=== PATIENT | female | born 1930 | race Hispanic/Latino ===

== ENCOUNTER 2017-10-22 15:24 | Emergency (ER) | payer MEDICARE ==
[2017-10-22 18:04] LABS: BASOPHILS % (AUTO) 0.5 % (0.0-5.0); EOSINOPHILS % (AUTO) 0.8 % (0.0-8.0); HEMATOCRIT 39.6 % (36-48); MEAN CORPUSCULAR HEMOGLOBIN 31.3 pg (27.0-33.0); MEAN CORPUSCULAR VOLUME 89.6 fL (79-99); MONOCYTES % (AUTO) 8.8 % (3.0-13.0); NEUTROPHILS % (AUTO) 68.9 % (40.0-77.0); NUCLEATED RED BLOOD CELLS 0.1 % (0.0-0.19); PLATELET COUNT (AUTO) 268 K/uL (130-400); RED BLOOD CELL COUNT(AUTO) 4.41 MIL/uL (4.00-5.50); RED CELL DISTRIBUTION WIDTH 14.4 % (11.0-15.5); WHITE BLOOD COUNT (AUTO) 9.5 K/uL (4.8-10.8)
[2017-10-22 18:23] LABS: INR 0.95 (0.85-1.15); PARTIAL THROMBOPLASTIN TIME 27.4 SEC (26.3-35.5)
[2017-10-22 18:24] LABS: CARBON DIOXIDE 29 mmol/L (21-32); CHLORIDE 102 mmol/L (101-111); GLOMERULAR FILTR. RATE CALC 56 mL/min (>60); GLUCOSE,RANDOM 100 mg/dL (70-105); POTASSIUM 3.8 mmol/L (3.5-5.1); SODIUM SERUM 141 mmol/L (136-145); UREA NITROGEN, BLOOD 23 mg/dL (7-18)
[2017-10-22 18:38] LABS: ALANINE AMINOTRANSFERASE 21 U/L (12-78); ALBUMIN 3.5 g/dL (3.5-5.0); ASPARTATE AMINOTRANSFERASE 17 U/L (10-37); BILIRUBIN,TOTAL 0.3 mg/dL (0.2-1.0); CREATINE KINASE MB < 0.5 ng/mL (0.5-3.6); CREATINE KINASE, TOTAL 37 U/L (21-232)
== END 2017-10-22 19:48 | disposition home or self-care (01) ==
LOC: EDH 15:24
DX: I10 Essential (primary) hypertension (principal); R42 Dizziness and giddiness; Z90.49 Acquired absence of other specified parts of digestive tract; Z98.890 Other specified postprocedural states
CPT/HCPCS: 36415; 70450; 71045; 80053; 82550; 82553; 83880; 84484; 85025; 85610; 85730; 93005

== ENCOUNTER → 2018-09-13 | Outpatient (CLI) | payer OTHER, MEDICARE | END | disposition home or self-care (01) | LOC: OIH 09:59 | PROVIDERS: ATTEND Internal Medicine Cardiovascular Disease | DX: R07.9 Chest pain, unspecified (principal); M47.815 Spondylosis without myelopathy or radiculopathy, thoracolumbar region; Q25.46 Tortuous aortic arch | CPT/HCPCS: 71046 ==

== ENCOUNTER 2018-11-29 18:42 | Observation (INO) | payer OTHER, MEDICARE ==
[~2018-11-29] VITALS: Ht 152.4 cm; Wt 73.2 kg
[2018-11-29 19:18] LABS: BASOPHILS % (AUTO) 0.5 % (0.0-5.0); EOSINOPHILS % (AUTO) 0.3 % (0.0-8.0); LYMPHOCYTES % (AUTO) 9.3 % (21.0-51.0); MEAN CORPUSCULAR HEMOGLOBIN 30.5 pg (27.0-33.0); MEAN CORPUSCULAR HGB CONC 34.1 g/dL (32.0-36.0); MEAN CORPUSCULAR VOLUME 89.4 fL (79-99); MONOCYTES % (AUTO) 7.1 % (3.0-13.0); NEUTROPHILS % (AUTO) 82.8 % (40.0-77.0); PLATELET COUNT (AUTO) 234 K/uL (130-400); RED BLOOD CELL COUNT(AUTO) 4.37 MIL/uL (4.00-5.50); WHITE BLOOD COUNT (AUTO) 9.6 K/uL (4.8-10.8)
[2018-11-29] MEDS ORDERED: ASPIRIN 325 MG TABLET ONE (19:23)
[2018-11-29 19:27] LABS: CREATININE 0.9 mg/dL (0.5-1.5); POTASSIUM 3.7 mmol/L (3.5-5.1)
[2018-11-29 23:00] VITALS: BP 157/78
[2018-11-29] MEDS ORDERED: ACETAMINOPHEN 325 MG TAB PO PRN (23:30)
[2018-11-29] MEDS ORDERED: ONDANSETRON HCL 4 MG/2 ML VIAL IVP PRN (23:30)
[2018-11-29] MEDS ORDERED: NITROGLYCERIN 0.4 MG SL TAB SL PRN (23:30)
[2018-11-29] MEDS ORDERED: CETI10TA57 PO (23:53)
[2018-11-29] MEDS ORDERED: PANT40TA25 PO (23:53)
[2018-11-29] MEDS ORDERED: CHOL200074 PO (23:53)
[2018-11-29] MEDS ORDERED: PRAV40TA3 PO (23:53)
[2018-11-29] MEDS ORDERED: LISI40TA4 PO (23:53)
[2018-11-29] MEDS ORDERED: MAGN250T39 PO (23:53)
[2018-11-30 02:24] LABS: CREATINE KINASE, TOTAL 58 U/L (21-232); MYOGLOBIN 69 ng/mL (10-92); TROPONIN I < 0.04 ng/mL (0.00-0.06)
[2018-11-30 04:10] VITALS: BP 127/61
[2018-11-30 05:04] LABS: HEMATOCRIT 39.9 % (36-48); MEAN CORPUSCULAR HEMOGLOBIN 30.9 pg (27.0-33.0); MEAN CORPUSCULAR HGB CONC 34.4 g/dL (32.0-36.0); MEAN CORPUSCULAR VOLUME 89.8 fL (79-99); NUCLEATED RED BLOOD CELLS 0.1 % (0.0-0.19); PLATELET COUNT (AUTO) 200 K/uL (130-400); RED BLOOD CELL COUNT(AUTO) 4.44 MIL/uL (4.00-5.50); RED CELL DISTRIBUTION WIDTH 12.9 % (11.0-15.5); WHITE BLOOD COUNT (AUTO) 6.8 K/uL (4.8-10.8)
[2018-11-30 05:17] LABS: ALBUMIN 3.5 g/dL (3.5-5.0); BILIRUBIN,TOTAL 0.4 mg/dL (0.2-1.0); CREATININE 0.9 mg/dL (0.5-1.5); POTASSIUM 3.9 mmol/L (3.5-5.1); TOTAL PROTEIN, SERUM 6.6 g/dL (6.0-8.3)
[2018-11-30 08:00] VITALS: BP 148/73
[2018-11-30 08:04] LABS: CREATINE KINASE, TOTAL 56 U/L (21-232); MYOGLOBIN 61 ng/mL (10-92); TROPONIN I < 0.04 ng/mL (0.00-0.06)
[2018-11-30] MEDS: MAGNESIUM OXIDE 250 MG PO SCH (09:00)
[2018-11-30] MEDS: PANTOPRAZOLE SODIUM 40 MG TABLET.DR PO SCH (09:00)
[2018-11-30] MEDS: CETIRIZINE HCL 5 MG TABLET PO SCH (09:00)
[2018-11-30] MEDS: ASPIRIN 81MG TAB.CHEW PO SCH (09:00)
[2018-11-30] MEDS: CHOLECALCIFEROL 5000 UNIT PO SCH (09:00)
[2018-11-30] MEDS ORDERED: REGADENOSON 0.4 MG/5 ML PF SYG IVP SCH (12:45)
[2018-11-30 13:44] VITALS: BP 135/78
--- NOTE | 2018-11-30 15:25 | NUR ---
DCP CM met with pt discussed dc plans. Pt is independent prior to admission, lives at home alone. Denies any equipments/services. Pt feels safe to go back home, neice able to assist with transportation and needs as necessary. Offered possible short term placement for rehab if MD recommends, pt declined at this time, prefers to go back home. Willing to reconsider if necessary once close to dc. DC plan to home once stable. CM to cont to follow up. Addendum: 11/30/18 at 1531 by LUCRECIA DARNELL LVN CM Amended: Links added.
[2018-11-30 16:00] VITALS: BP 141/71
[2018-11-30 16:34] LABS: CREATINE KINASE, TOTAL 63 U/L (21-232); MYOGLOBIN 95 ng/mL (10-92); TROPONIN I < 0.04 ng/mL (0.00-0.06)
[2018-11-30 19:54] VITALS: BP 151/67
[2018-11-30] MEDS ORDERED: LISINOPRIL 40 MG TABLET PO SCH (21:00)
[2018-11-30] MEDS ORDERED: PRAVASTATIN 40 MG PO SCH (21:00)
[2018-11-30 23:35] VITALS: BP 140/78
[2018-12-01 03:55] VITALS: BP 125/51
[2018-12-01 07:00] VITALS: BP 143/66
[2018-12-01] MEDS: CHOLECALCIFEROL 5000 UNIT PO SCH (09:00)
[2018-12-01] MEDS: MAGNESIUM OXIDE 250 MG PO SCH (09:00)
[2018-12-01] MEDS: CETIRIZINE HCL 5 MG TABLET PO SCH (09:36)
[2018-12-01] MEDS: PANTOPRAZOLE SODIUM 40 MG TABLET.DR PO SCH (09:36)
[2018-12-01] MEDS: ASPIRIN 81MG TAB.CHEW PO SCH (09:36)
[2018-12-01 11:00] VITALS: BP 118/73
[2018-12-01 16:00] VITALS: BP 134/74
--- NOTE | 2018-12-01 17:25 | NUR ---
DISCHARGE PATIENT GIVEN DISCHARGE INSTRUCTIONS VIA TEACH BACK. 20G PIV TO RH DISCONTINUED, TIP INTACT. NO RX GIVEN, PATIENT TO CONTINUE HOME MEDS. PATIENT TO FOLLOW UP WTIH DR. CHEN AND DR. JOVEL. TELE REMOVED AND RETURNED TO TELEMETRY. PATIENT STABLE AT THIS TIME. PATIENT'S BROTHER AT BEDSIDE TO TRANSPORTER PATIENT HOME.
== END 2018-12-01 17:26 | disposition home or self-care (01) ==
LOC: EDH 18:42 → EDHIP 20:20 → 3BH 21:54
PROVIDERS: ADMIT Internal Medicine; ATTEND Internal Medicine
DX: R07.2 Precordial pain (principal); E78.5 Hyperlipidemia, unspecified; H93.19 Tinnitus, unspecified ear; I10 Essential (primary) hypertension; R42 Dizziness and giddiness; Z79.82 Long term (current) use of aspirin; Z79.899 Other long term (current) drug therapy
CPT/HCPCS: 36415 ×2; 71045 ×2; 78452; 80048; 80053; 82550 ×3; 82948; 83874 ×3; 84484 ×4; 85025; 85027; 93005 ×4; 93017; 93306; 99284; A9500 ×2; G0378 ×45; J2785; 96374

== ENCOUNTER → 2019-03-28 | Outpatient (CLI) | payer OTHER, MEDICARE ==
[~2019-03-28] MED LIST: CETI10TA57 PO; CHOL200074 PO; LISI40TA4 PO; MAGN250T39 PO; PANT40TA25 PO; PRAV40TA3 PO
== END | disposition home or self-care (01) ==
LOC: RAH 07:11
PROVIDERS: ATTEND Internal Medicine Gastroenterology
DX: K76.0 Fatty (change of) liver, not elsewhere classified (principal); N28.1 Cyst of kidney, acquired; Z90.49 Acquired absence of other specified parts of digestive tract
CPT/HCPCS: 76700

== ENCOUNTER → 2019-08-24 | Outpatient (CLI) | payer OTHER, MEDICARE ==
[~2019-08-24] MED LIST changes: +IOHEXOL-350 50ML VIAL IV ONE
== END | disposition home or self-care (01) ==
LOC: RAH 08:00
PROVIDERS: ATTEND Internal Medicine Gastroenterology
DX: N28.1 Cyst of kidney, acquired (principal); K76.9 Liver disease, unspecified; Z90.49 Acquired absence of other specified parts of digestive tract
CPT/HCPCS: 74170; Q9967

== ENCOUNTER → 2019-11-02 | Outpatient (CLI) | payer OTHER, MEDICARE ==
[~2019-11-02] MED LIST changes: -IOHEXOL-350 50ML VIAL IV ONE
== END | disposition home or self-care (01) ==
LOC: RAH 12:52
PROVIDERS: ATTEND Family Medicine
DX: S00.93XA Contusion of unspecified part of head, initial encounter (principal); G31.9 Degenerative disease of nervous system, unspecified; X58.XXXA Exposure to other specified factors, initial encounter; Y93.89 Activity, other specified; Y92.89 Other specified places as the place of occurrence of the external cause; Y99.8 Other external cause status
CPT/HCPCS: 70450